=== PATIENT | male | born 1995 | race Caucasian/White ===

== ENCOUNTER 2019-04-29 11:38 | Emergency (ER) | payer OTHER ==
--- NOTE | 2019-04-29 12:11 | ED Physician Documentation ---
PD HPI HEENT - Stated complaint Stated Complaint: BLOCKED EARS - Chief complaint Chief Complaint: Heent - History obtained from History obtained from: Patient - History of Present Illness Timing - onset: How many days ago (4-5) Timing - duration: Days (4-5 days of congestion and some sinus pressure, then with ear pains developing. Feeling more painful and poor hearing from both now.) Timing - details: Gradual onset, Still present Location: Right ear, Left ear, Nose. No: Throat Worsens: Swalllowing Associated symptoms: Congestion. No: Fever, Facial swelling Similar symptoms before: Has not had sx before Recently seen: Clinic (seen 3 days ago at [facility] and told to use guiafenacin and Ibuprofen.) Review of Systems Constitutional: reports: Myalgias. denies: Fever, Chills Ears: reports: Loss of hearing, Ear pain. denies: Drainage/discharge, Tinnitus/ringing Nose: reports: Congestion, Sinus pressure / pain Throat: denies: Sore throat Respiratory: reports: Cough GI: denies: Nausea, Vomiting, Diarrhea Neurologic: denies: Altered mental status, Headache PD PAST MEDICAL HISTORY - Past Medical History Cardiovascular: None Respiratory: None HEENT: None - Present Medications Home Medications: Ambulatory Orders Medication Instructions Recorded Confirmed Cephalexin [Keflex] 500 mg PO Q6H #28 capsule 04/29/19 Cetirizine [ZyrTEC] 10 mg PO DAILY #15 tablet 04/29/19 Ibuprofen [Motrin] 600 mg PO TID PRN #25 tab 04/29/19 dexAMETHasone [Decadron] 4 mg PO DAILY #5 tablet 04/29/19 - Allergies Allergies/Adverse Reactions: Allergies Allergy/AdvReac Type Severity Reaction Status Date / Time clarithromycin [From Biaxin] Allergy Hives Verified 04/29/19 11:46 PD ED PE NORMAL - Vitals Vital signs reviewed: Yes - General General: Alert and oriented X 3, Well developed/nourished - HEENT HEENT: Moist mucous membranes, Pharynx benign. No: Ears normal (both TMs very red and bulging without perforation. ) - Neck Neck: Supple, no meningeal sign, Other (anterior adenopathy) - Cardiac Cardiac: RRR, No murmur - Respiratory Respiratory: Clear bilaterally - Derm Derm: Normal color, Warm and dry Results - Vitals Vitals: Vital Signs - 24 hr 04/29/19 04/29/19 11:46 13:05 Temperature 37.2 C 36.8 C Heart Rate 70 62 Respiratory 16 16 Rate Blood Pressure 148/94 H 125/72 O2 Saturation 97 98 Oxygen O2 Source Room air PD MEDICAL DECISION MAKING - ED course Complexity details: considered differential (both ears TMs quite red and bulging.), d/w patient Departure - Departure Disposition: 01 Home, Self Care Clinical Impression: Upper respiratory infection Qualifiers: URI type: unspecified URI Qualified Code(s): J06.9 - Acute upper respiratory infection, unspecified Otitis media Qualifiers: Otitis media type: suppurative Chronicity: acute Laterality: bilateral Recurrence: non-recurrent Spontaneous tympanic membrane rupture: without spontaneous rupture Qualified Code(s): H66.003 - Acute suppurative otitis media without spontaneous rupture of ear drum, bilateral Condition: Stable Record reviewed to determine appropriate education?: Yes Instructions: ED Otitis Media Acute Adult Follow-Up: DARIO BREAUX III, MD [Primary Care Provider] - Prescriptions: Cephalexin [Keflex] 500 mg PO Q6H #28 capsule Cetirizine [ZyrTEC] 10 mg PO DAILY #15 tablet dexAMETHasone [Decadron] 4 mg PO DAILY #5 tablet Ibuprofen [Motrin] 600 mg PO TID PRN #25 tab PRN Reason: Pain Comments: You can continue the saline spray for the nostrils to cleanse him out. Use cephalexin antibiotic as directed for potential bacterial infection. Decadron steroid daily for 5 more days for inflammation and cetirizine antihistamine for a week or 2 for congestion. Ibuprofen 3 times a day as needed for pains and add Tylenol if needed. I would anticipate improvement over the next 2 to 3 days and resolution within 5 or 6 days. Discharge Date/Time: 04/29/19 13:26
[2019-04-29] MEDS ORDERED: IBUPROFEN 600 MG TABLET PO STA (12:48)
[2019-04-29] MEDS ORDERED: CHERRY SYRUP 10 ML UDC PO ONE (12:48)
[2019-04-29] MEDS ORDERED: diphenhydrAMINE 25 MG CAPSULE PO STA (12:48)
[2019-04-29] MEDS ORDERED: cephALEXin 250 MG CAPSULE PO STA (12:48)
[2019-04-29] MEDS ORDERED: DEXAMETHASONE 10 MG/ML VIAL PO STA (12:48)
[2019-04-29 13:14] VITALS: BP 125/72
== END 2019-04-29 13:26 | disposition home or self-care (01) ==
LOC: ED 11:38
DX: J06.9 Acute upper respiratory infection, unspecified (principal); H66.003 Acute suppurative otitis media without spontaneous rupture of ear drum, bilateral
CPT/HCPCS: 99284; A9270

== ENCOUNTER 2019-12-19 06:01 | Day surgery (SDC) | payer OTHER ==
[2019-12-19] MEDS ORDERED: LACTATED RINGERS 1,000 ML IV ONE ×2 (06:31→08:58)
[2019-12-19] MEDS ORDERED: CEFAZOLIN SODIUM IN 0.9 % NACL 2 GM/100 ML BAG IV ONE (06:41)
[2019-12-19] MEDS ORDERED: MORPHINE 2 MG/ML CARPUJECT IVP PRN (07:10)
[2019-12-19] MEDS ORDERED: HYDROmorphone 0.5 MG/0.5 ML SYRINGE IVP PRN (07:10)
[2019-12-19] MEDS ORDERED: NALOXONE 0.4 MG/ML VIAL IVP PRN (07:10)
[2019-12-19] MEDS ORDERED: fentaNYL 100 MCG/2 ML VIAL IVP PRN (07:10)
[2019-12-19] MEDS ORDERED: ATROPINE ABBOJECT 1 MG/10 ML SYRINGE IVP PRN (07:10)
[2019-12-19] MEDS ORDERED: ePHEDrine 50 MG/ML VIAL IVP PRN (07:10)
[2019-12-19] MEDS ORDERED: ONDANSETRON 4 MG/2 ML VIAL IVP PRN ×2 (07:10→08:54)
[2019-12-19] MEDS ORDERED: METOCLOPRAMIDE 10 MG/2 ML VIAL IVP PRN (07:10)
--- NOTE | 2019-12-19 07:10 | ANESTHESIA ---
Pre-Anesthesia VS, & Labs - Diagnosis right knee chondromalacia - Procedure right knee arthroscopy, chondroplasty Vital Signs: Temp Pulse Resp BP Pulse Ox 36.5 C 70 16 136/76 H 98 12/19/19 06:37 12/19/19 06:37 12/19/19 06:37 12/19/19 06:37 12/19/19 06:37 Height: 5 ft 9 in Weight (kg): 113.4 kg Body Mass Index: 36.9 BMI Classification: Obese - NPO >8 hours Home Medications and Allergies Allergies/Adverse Reactions: Allergies Allergy/AdvReac Type Severity Reaction Status Date / Time clarithromycin [From Biaxin] Allergy Hives Verified 12/15/19 15:13 Anes History & Medical History - Anesthetic History Anesthesia Complications: reports: No previous complications Family history of Anesthesia Complications: Denies Family history of Malignant Hyperthermia: Denies - Medical History Cardiovascular: reports: None Pulmonary: reports: None Gastrointestinal: reports: None Urinary: reports: None Musculoskeletal: reports: Other Endocrine/Autoimmune: reports: None Skin: reports: None Smoking Status: Never smoker - Surgical History Eyes Ears Nose Throat (EENT): Tonsil/Adenoidectomy Orthopedic: Arthroscopic surgery Exam General: Alert, Oriented x3, Cooperative, No acute distress Dental: WNL Mouth Openin Fingerbreadth Neck Mobility: Normal Mallampati classification: I Respiratory: Lungs clear, Normal breath sounds, No respiratory distress Cardiovascular: Regular rate, Normal S1, Normal S2, No murmurs Plan Anesthesia Type: General Consent for Procedure(s) Verified and Reviewed: Yes Code Status: Attempt Resuscitation ASA classification: 2-Mild systemic disease Is this case an emergency?: No
[2019-12-19] MEDS ORDERED: BUPIVACAINE 0.25% PF 30 ML VIAL ONE (07:13)
[2019-12-19] MEDS ORDERED: EPINEPHrine 1 MG/ML AMP ONE (07:13)
[2019-12-19] MEDS ORDERED: LACTATED RINGERS 1,000 ML IV SCH (08:00)
[2019-12-19] MEDS ORDERED: BUPIVACAINE 0.25% PF 30 ML VIAL SUBQ ONE ×2 (08:09)
[2019-12-19] MEDS: HYDROmorphone 1 MG/ML CARPUJECT ONE ×2 (08:48→09:00)
[2019-12-19] MEDS ORDERED: oxyCODONE 5 MG TABLET PO PRN (08:54)
--- NOTE | 2019-12-19 09:06 | OPERATIVE REPORT ---
Operative Report - Other Other Information/Narrative: Date of Surgery: 19 December 2019 Pre-Op Diagnosis: Right knee cartilage injury Procedure: Right knee arthroscopy with patellar chondroplasty, lateral tibial plateau chondroplasty, lateral meniscus debridement Postop Diagnosis: Right knee cartilage injury. Right knee lateral meniscus tear. Primary Surgeon: Torsten Ca Secondary Surgeon: None Complications: None Tourniquet Time: 28 minutes EBL: 5 cc Indication For Surgery: 4-year-old male whom has had patellar pain for 5 to 10 years with insidious onset. MRI and exam was consistent with cartilage injury of the patellofemoral joint and the lateral hemijoint. The goals of surgery were to stabilize the edges of the cartilage lesions and to potentially stage for a second grafting procedure. The risks, benefits, and alternatives were discussed. Risks include pain, bleeding, infection, damage to nearby structures and cartilage, lack of symptom relief, need for further surgery, DVT, PE, stroke, and . Written consent was obtained. Examination Under Anesthesia: ROM equal to the contralateral side. Stable dial at 30 & 90 degrees. Stable to varus and valgus stressing at 0 & 30 degrees. Stable Shawn. Stable Pivot shift. No mechanical sensation Arthroscopic Findings: Loose bodies -soft, small cartilage space loose bodies were seen throughout the knee and they were removed Synovium -injected and synovitic throughout the knee, with some frondular synovitis adjacent to the patella which was debrided Patella cartilage -a large near full-thickness lesion of the lateral patellar facet was present taking up nearly the entire facet and measuring 15 mm x 15 mm, there were no sharp borders. The medial patella also had some partial thickness damage. There was at least partial thickness softening and cartilage wear on the majority of the patella. Trochlear cartilage -the lateral trochlea had grade 2/3 changes throughout. The central trochlea had some linear tracking. The medial trochlea was intact. Notch osteophytes were present along the border of the trochlea as well. There were osteophytes present on the lateral and medial trochlea. multiple full- thickness lesions were seen in the lateral trochlea and measured 5 mm x 5 mm Medial femoral condyle cartilage -largely normal Medial tibial plateau cartilage -normal Medial meniscus -normal Anterior cruciate ligament -normal Posterior cruciate ligament -normal Lateral femoral condyle cartilage -5 mm x 5 mm full-thickness lesion was seen when in full flexion, and another similar lesion was seen when a nearly full extension, these were debrided with a shaver. The majority of the weightbearing surface was intact Lateral tibial plateau cartilage -there was large grade 2/3 changes throughout all portions of the lateral plateau that were not covered by meniscus. There is a 5 mm x 10 mm section in the posterior part of the plateau that had full- thickness cartilage lesion with eburnation of the bone. The edge of the cartilage was debrided until it was stable. Lateral meniscus -degenerative changes seen within the posterior horn along the underside with a small unstable flap, this was debrided back to a stable base. The majority of the lateral meniscus was intact. Procedure in Detail: The patient was met in the pre-operative hold area on the day of the procedure. The operative extremity was signed and questions were answered. The patient was brought to the operating room and a general anesthetic was administered. Supine position was used and bony prominences were padded. An examination under anesthesia was performed. Standard prepping and draping was performed. A time out confirmed patient identification, laterality, procedure, allergies, antibiotics, and images. An Esmarch was used to exsanguinate the limb and the tourniquet was elevated to 250 mmHg. A standard diagnostic arthroscopy of the knee was performed through anterolateral and anteromedial portal sites. The anteromedial portal was created under direct visualization after localizing with a spinal needle. The findings can be found above. I then proceeded to use a shaver and a biter to debride all unstable portions of cartilage, which were quite extensive. I worked on the underside of the patella and on the lateral trochlea. I also debrided unstable synovitis about the patella and some synovitis of the anterior knee. Final images were taken and all arthroscopic fluid and instruments were removed from the knee. The incisions were closed with buried monocryl sutures. Steri strips were applied. 10 cc of 0.25% Marcaine without epinephrine was injected near the portal sites. A sterile dressing and compression stocking was placed. The patient was awakened and transferred to recovery in stable condition.
--- NOTE | 2019-12-19 09:30 | ANESTHESIA POST OP EVALUATION ---
Anesthesia Post Eval - Post Anesthesia Eval Vitals: Last Vital Signs Temp 36.6 C 12/19/19 09:22 Pulse 69 12/19/19 09:22 Resp 16 12/19/19 09:22 BP 132/70 H 12/19/19 09:22 Pulse Ox 98 12/19/19 09:22 CV Function Including HR & BP: positive: Stable Pain Control: positive: Satisfactory Nausea & Vomiting: positive: Negative Mental Status: positive: Baseline Respiratory Status: Airway Patent Hydration Status: Satisfactory Anesthesia Complications: positive: None
[2019-12-19] MEDS ORDERED: oxyCODONE 5 MG TABLET ONE (09:45)
[2019-12-19 10:04] VITALS: BP 135/73
== END 2019-12-19 06:02 | disposition home or self-care (01) ==
LOC: SDS 06:01
PROVIDERS: ATTEND Orthopaedic Surgery
DX: M23.92 Unspecified internal derangement of left knee (principal); S83.281A Other tear of lateral meniscus, current injury, right knee, initial encounter

== ENCOUNTER 2020-09-10 18:59 | Outpatient (CLI) | payer OTHER | END 2020-09-10 19:00 | disposition short-term general hospital (02) | LOC: EMS 18:59 | DX: S89.91XA Unspecified injury of right lower leg, initial encounter (principal); X58.XXXA Exposure to other specified factors, initial encounter; Y93.64 Activity, baseball | CPT/HCPCS: A0425; A0427 ==

== ENCOUNTER 2020-10-06 22:43 | Outpatient (CLI) | payer OTHER | END 2020-10-06 22:44 | disposition short-term general hospital (02) | LOC: EMS 22:43 | DX: R55 Syncope and collapse (principal) | CPT/HCPCS: A0425; A0427 ==

== ENCOUNTER 2021-01-29 08:58 | Outpatient (CLI) | payer OTHER ==
[2021-01-29] MEDS ORDERED: GADOBUTROL 15 MMOL/15 ML VIAL ONE (09:09)
--- NOTE | 2021-01-29 11:59 | MRI Report ---
PROCEDURE: Lower Leg (Tib-Fib) RT W/WO INDICATIONS: PAIN IN RIGHT LEG/ INFECTION RECENT SURG TECHNIQUE: Noncontrast coronal and sagittal T1 spin echo and STIR; axial T1 spin echo and T2 fast spin echo with fat saturation through the tib-fib. Postcontrast coronal T1. CONTRAST: 12 mL Gadavist. COMPARISON: None. FINDINGS: Image quality: Significant susceptibility artifact from the patient's internal fixation hardware. Bones: Intramedullary T2 hyperintense/T1 hypointense signal is seen in the mid to distal tibia, just distal to the hardware. The visualized bone marrow demonstrates normal signal on all sequences. The overlying cortex appears intact. No fractures lines are appreciated. Soft tissues: The scanned muscles demonstrate normal overall bulk and internal signal. Predominantly anterior, reticulated T2 hyperintense/T1 hypointense signal in the subcutaneous fat, compatible with edema. A bilobed T2 hyperintense lesion is seen anterior to the proximal tibia, measuring 6.1 x 0.7 x 3.3 cm (i.e. series 1001, image 16), which may reflect a hematoma. IMPRESSION: 1. Abnormal signal in the mid to distal tibial diaphysis as detailed above, which may reflect bone in farction. An infectious process cannot be excluded. 2. Bilobed fluid collection anterior to the proximal tibia as detailed above, which may reflect a hem atoma. An abscess cannot be excluded. Reviewed by: Anurag Johnson MD on 01/29/2021 11:58 AM [facility] Approved by: Anurag Johnson MD on 01/29/2021 11:58 AM [facility] Station ID: [id number]
[2021-01-29] MEDS ORDERED: GADOBUTROL 15 MMOL/15 ML VIAL IVP ONE (15:35)
== END 2021-01-29 08:59 | disposition home or self-care (01) ==
LOC: DI 08:58
PROVIDERS: ATTEND Family Medicine
DX: R93.6 Abnormal findings on diagnostic imaging of limbs (principal); R93.89 Abnormal findings on diagnostic imaging of other specified body structures
CPT/HCPCS: 73720; A9585

== ENCOUNTER 2021-03-04 14:51 | Emergency (ER) | payer OTHER ==
[2021-03-04] MEDS ORDERED: ALBUTEROL 1 PUFF INH STA (17:04)
--- NOTE | 2021-03-04 17:04 | XRAY Report ---
PROCEDURE: Chest 1 View X-Ray INDICATIONS: chest pain TECHNIQUE: One view of the chest was acquired. COMPARISON: None FINDINGS: Surgical changes and devices: None. Lungs and pleura: No pleural effusions or pneumothorax. Lungs are clear. Mediastinum: Mediastinal contours appear normal. Heart size is normal. Bones and chest wall: No suspicious bony lesions. Overlying soft tissues appear unremarkable. IMPRESSION: No acute cardiopulmonary pathology. Reviewed by: Diego Bernardo MD on 03/04/2021 5:03 PM [facility] Approved by: Diego Bernardo MD on 03/04/2021 5:03 PM [facility] Station ID: [id number]
--- NOTE | 2021-03-04 17:06 | ED Physician Documentation ---
History of Present Illness - Stated complaint Stated Complaint: COUGH, IN CAR [phone] - Chief complaint Chief Complaint: Resp - Additonal information Additional information: 25-year-old male who denies any pertinent past medical history and is fully vaccinated for COVID-19 presents the emergency department with 3 to 4 days of cough, congestion and sore throat and wheeze. He denies any tobacco or vape use. He was exposed to a family member who is COVID-19 positive on Canid. His biggest concern is his painful swallow. Previous history of tonsillectomy. Review of Systems Constitutional: reports: Fever. denies: Chills, Myalgias Eyes: reports: Reviewed and negative Ears: reports: Reviewed and negative Nose: reports: Congestion Throat: reports: Sore throat Cardiac: denies: Palpitations Respiratory: reports: Dyspnea, Cough, Wheezing GI: reports: Reviewed and negative : reports: Reviewed and negative PD PAST MEDICAL HISTORY - Past Medical History Cardiovascular: None Respiratory: None Endocrine/Autoimmune: None GI: None : None HEENT: None Psych: None Musculoskeletal: Other Derm: None - Past Surgical History Past Surgical History: Yes Ortho: Arthroscopic surgery HEENT: Tonsil/Adenoidectomy - Present Medications Home Medications: Ambulatory Orders Medication Instructions Recorded Confirmed Ibuprofen [Motrin] 600 mg PO TID PRN #25 tab 04/29/19 12/19/19 Albuterol Sulf [Ventolin Hfa 1 - 2 puffs INH Q4HR PRN #1 inhaler 03/04/21 Inhaler] - Allergies Allergies/Adverse Reactions: Allergies Allergy/AdvReac Type Severity Reaction Status Date / Time clarithromycin [From Biaxin] Allergy Hives Verified 12/15/19 15:13 - Social History Does the pt smoke?: No Smoking Status: Never smoker Does the pt drink ETOH?: Yes Does the pt have substance abuse?: No - Immunizations Immunizations: TDAP >10years/unknown PD ED PE NORMAL - General General: Alert and oriented X 3, No acute distress, Well developed/nourished - HEENT HEENT: Atraumatic, Moist mucous membranes, Other (Tonsils appear surgically absent. Generalized posterior oropharynx erythema without exudate. Uvula is midline. Normal swallow. Mild dysphonia.) - Neck Neck: Supple, no meningeal sign, No adenopathy - Cardiac Cardiac: RRR, No murmur - Respiratory Respiratory: No respiratory distress. 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 Eye Opening: Spontaneous Motor: Obeys Commands Verbal: Oriented GCS Score: 15 Results - Vitals Vitals: Vital Signs - 24 hr 03/04/21 03/04/21 16:34 17:56 Temperature 37.1 C Heart Rate 88 100 Respiratory 24 18 Rate Blood Pressure 112/57 L O2 Saturation 100 Oxygen O2 Source Room air - Labs Labs: Laboratory Tests 03/04/21 16:44 Group A Strep Rapid Negative - Rads (name of study) CXR Radiology: Final report received (no acute cardiopulmonary pathology) PD MEDICAL DECISION MAKING - ED course Complexity details: reviewed results, re-evaluated patient, considered differential, d/w patient ED course: This is a well-appearing 25-year-old male who presents the emergency department for evaluation of a sore throat cough congestion in the setting of recent Covid 19 exposure. Patient is however fully vaccinated. Rapid strep is negative. A Covid is pending. He did present without hypoxia but had some diffuse scattered expiratory wheeze. Patient was given albuterol here in the emergency department With marked improvement in symptoms. CXR negative. Therefore he will be discharged and albuterol puffer on discharge. He is advised to remain in quarantine until the results are known of his Covid swab. He otherwise appears very well. Emergent return precautions were discussed. Departure - Departure Disposition: Home, Self Care Clinical Impression: Viral upper respiratory infection, Sore throat (viral) Condition: Stable Record reviewed to determine appropriate education?: Yes Instructions: ED Pharyngitis Viral Prescriptions: Albuterol Sulf [Ventolin Hfa Inhaler] 1 - 2 puffs INH Q4HR PRN #1 inhaler PRN Reason: Shortness Of Air/Wheezing Comments: Michele you were seen in the emergency department today for a sore throat cough and congestion. Your chest x-ray is normal. There is no pneumonia. Your rapid strep testing is negative. We do have a Covid test pending on you. I suspect that the cause of your symptoms is a virus. You are to remain in quarantine until your Covid results are known. I recommend that you gargle with warm salt water 3 times a day, take ibuprofen or Tylenol [id number] for discomfort. I have prescribed an albuterol inhaler to the right aid in [place] You have a Covid test pending. You need to self quarantine until the result is done and negative. Do not leave your house. Do not get near anybody. The results should be done in 48 to 72 hours. We will call with a positive result, the fastest way to get a negative result for confirmation though is to go to the hospital website at [email or web address], click on the my [facility] tab and sign up for the patient portal. If any friends or family get sick and would like to have a Covid test done, but do not have signs or symptoms that would necessitate being hospitalized, there are multiple local options for Covid testing. [facility] keeps an updated list of testing and vaccination options at [email or web address]
[2021-03-04 17:14] LABS: RAPID STREP SCREEN Negative (Negative)
[2021-03-04 18:27] VITALS: BP 121/71
== END 2021-03-04 18:27 | disposition home or self-care (01) ==
LOC: ED 14:51
DX: J06.9 Acute upper respiratory infection, unspecified (principal); Z20.822 Contact with and (suspected) exposure to COVID-19
CPT/HCPCS: 87070; 87430; 94640; 94664; 99283; 99284

== ENCOUNTER 2021-06-02 08:00 | Outpatient (CLI) | payer OTHER ==
[2021-06-02 17:35] LABS: BASOPHILS # (AUTO) 0.1 10^3/uL (0.0-0.1); BASOPHILS % (AUTO) 1.1 %; EOSINOPHILS # (AUTO) 0.1 10^3/uL (0.0-0.7); EOSINOPHILS % (AUTO) 1.9 %; HCT - HEMATOCRIT 42.6 % (42.0-52.0); HGB - HEMOGLOBIN 14.1 g/dL (14.0-18.0); LYMPHOCYTES # (AUTO) 2.2 10^3/uL (1.5-3.5); MEAN CORPUSCULAR HGB CONC 33.1 g/dL (32.0-36.0); MEAN CORPUSCULAR VOLUME 84.5 fL (80.0-94.0); MEAN PLATELET VOLUME 10.8 fL (7.4-11.4); MONOCYTES # (AUTO) 0.7 10^3/uL (0.0-1.0); MONOCYTES % (AUTO) 8.8 %; NEUTROPHILS # (AUTO) 4.3 10^3/uL (1.5-6.6); NEUTROPHILS % (AUTO) 57.8 %; PLT - PLATELET COUNT 352 10^3/uL (130-450); RED BLOOD COUNT 5.04 10^6/uL (4.70-6.10); RED CELL DISTRIBUTION WIDTH 13.2 % (12.0-15.0); WHITE BLOOD COUNT 7.5 x10^3/uL (4.8-10.8)
[2021-06-02 18:00] LABS: ALBUMIN 4.1 g/dL (3.2-5.5); ALBUMIN/GLOBULIN RATIO 1.4 (1.0-2.2); BILIRUBIN,TOTAL 0.9 mg/dL (0.2-1.0); CALCIUM 9.4 mg/dL (8.5-10.3); CREATININE 0.8 mg/dL (0.6-1.2); POTASSIUM 4.1 mmol/L (3.5-5.0)
== END 2021-06-02 23:59 | disposition home or self-care (01) ==
LOC: LAB.R 08:00
PROVIDERS: ATTEND Internal Medicine Infectious Disease
DX: M86.261 Subacute osteomyelitis, right tibia and fibula (principal); M86.161 Other acute osteomyelitis, right tibia and fibula
CPT/HCPCS: 80053; 85025

== ENCOUNTER 2021-06-09 08:00 | Outpatient (CLI) | payer OTHER ==
[2021-06-09 17:46] LABS: BASOPHILS # (AUTO) 0.1 10^3/uL (0.0-0.1); BASOPHILS % (AUTO) 1.4 %; EOSINOPHILS # (AUTO) 0.1 10^3/uL (0.0-0.7); EOSINOPHILS % (AUTO) 2.3 %; HCT - HEMATOCRIT 43.7 % (42.0-52.0); HGB - HEMOGLOBIN 14.1 g/dL (14.0-18.0); LYMPHOCYTES # (AUTO) 1.8 10^3/uL (1.5-3.5); LYMPHOCYTES % (AUTO) 34.8 %; MEAN CORPUSCULAR HGB CONC 32.3 g/dL (32.0-36.0); MEAN CORPUSCULAR VOLUME 86.7 fL (80.0-94.0); MEAN PLATELET VOLUME 12.1 fL (7.4-11.4); MONOCYTES # (AUTO) 0.6 10^3/uL (0.0-1.0); MONOCYTES % (AUTO) 10.7 %; NEUTROPHILS # (AUTO) 2.6 10^3/uL (1.5-6.6); NEUTROPHILS % (AUTO) 50.6 %; PLT - PLATELET COUNT 320 10^3/uL (130-450); RED BLOOD COUNT 5.04 10^6/uL (4.70-6.10); RED CELL DISTRIBUTION WIDTH 13.2 % (12.0-15.0); WHITE BLOOD COUNT 5.1 x10^3/uL (4.8-10.8)
[2021-06-09 18:06] LABS: ALBUMIN 4.1 g/dL (3.2-5.5); ALBUMIN/GLOBULIN RATIO 1.5 (1.0-2.2); ALKALINE PHOSPHATASE 62 IU/L (42-121); ALT ALANINE AMINOTRANSFERASE < 10 IU/L (10-60); AST ASPARTATE AMINOTRANSFERASE 20 IU/L (10-42); BILIRUBIN,TOTAL 0.5 mg/dL (0.2-1.0); BUN - BLOOD UREA NITROGEN 17 mg/dL (6-20); CALCIUM 9.4 mg/dL (8.5-10.3); CARBON DIOXIDE - CO2 24 mmol/L (21-32); CHLORIDE 104 mmol/L (101-111); CREATININE 0.9 mg/dL (0.6-1.2); GFR - MDRD 103 (>89); GLUCOSE 99 mg/dL (70-100); POTASSIUM 4.1 mmol/L (3.5-5.0); SODIUM 140 mmol/L (135-145); TOTAL PROTEIN 6.9 g/dL (6.7-8.2)
== END 2021-06-09 23:59 | disposition home or self-care (01) ==
LOC: LAB.R 08:00
PROVIDERS: ATTEND Internal Medicine Infectious Disease
DX: M86.261 Subacute osteomyelitis, right tibia and fibula (principal); M86.161 Other acute osteomyelitis, right tibia and fibula
CPT/HCPCS: 80053; 85025

== ENCOUNTER 2021-06-16 16:26 | Outpatient (CLI) | payer OTHER ==
[2021-06-16 16:48] LABS: BASOPHILS # (AUTO) 0.1 10^3/uL (0.0-0.1); BASOPHILS % (AUTO) 1.1 %; EOSINOPHILS # (AUTO) 0.1 10^3/uL (0.0-0.7); EOSINOPHILS % (AUTO) 2.3 %; HCT - HEMATOCRIT 45.2 % (42.0-52.0); HGB - HEMOGLOBIN 15.1 g/dL (14.0-18.0); LYMPHOCYTES % (AUTO) 37.1 %; MEAN CORPUSCULAR HEMOGLOBIN 28.3 pg (27.0-31.0); MEAN CORPUSCULAR HGB CONC 33.4 g/dL (32.0-36.0); MEAN CORPUSCULAR VOLUME 84.6 fL (80.0-94.0); MEAN PLATELET VOLUME 11.8 fL (7.4-11.4); MONOCYTES # (AUTO) 0.5 10^3/uL (0.0-1.0); MONOCYTES % (AUTO) 9.3 %; NEUTROPHILS # (AUTO) 2.6 10^3/uL (1.5-6.6); NEUTROPHILS % (AUTO) 49.8 %; PLT - PLATELET COUNT 274 10^3/uL (130-450); RED BLOOD COUNT 5.34 10^6/uL (4.70-6.10); RED CELL DISTRIBUTION WIDTH 12.9 % (12.0-15.0); WHITE BLOOD COUNT 5.3 x10^3/uL (4.8-10.8)
[2021-06-16 17:19] LABS: ALBUMIN 4.2 g/dL (3.2-5.5); ALBUMIN/GLOBULIN RATIO 1.4 (1.0-2.2); ALKALINE PHOSPHATASE 60 IU/L (42-121); ALT ALANINE AMINOTRANSFERASE < 10 IU/L (10-60); AST ASPARTATE AMINOTRANSFERASE 21 IU/L (10-42); BILIRUBIN,TOTAL 1.3 mg/dL (0.2-1.0); BUN - BLOOD UREA NITROGEN 13 mg/dL (6-20); CALCIUM 9.1 mg/dL (8.5-10.3); CARBON DIOXIDE - CO2 24 mmol/L (21-32); CHLORIDE 100 mmol/L (101-111); CREATININE 0.7 mg/dL (0.6-1.2); GFR - MDRD 137 (>89); GLUCOSE 83 mg/dL (70-100); POTASSIUM 4.2 mmol/L (3.5-5.0); SODIUM 134 mmol/L (135-145); TOTAL PROTEIN 7.2 g/dL (6.7-8.2)
== END 2021-06-16 16:27 | disposition home or self-care (01) ==
LOC: LAB.R 16:26
PROVIDERS: ATTEND Internal Medicine Infectious Disease
DX: M86.261 Subacute osteomyelitis, right tibia and fibula (principal); M86.161 Other acute osteomyelitis, right tibia and fibula
CPT/HCPCS: 80053; 85025

== ENCOUNTER 2021-06-23 14:28 | Outpatient (CLI) | payer OTHER ==
[2021-06-23 14:46] LABS: BASOPHILS # (AUTO) 0.1 10^3/uL (0.0-0.1); BASOPHILS % (AUTO) 1.3 %; EOSINOPHILS # (AUTO) 0.1 10^3/uL (0.0-0.7); EOSINOPHILS % (AUTO) 1.9 %; HGB - HEMOGLOBIN 14.4 g/dL (14.0-18.0); LYMPHOCYTES # (AUTO) 1.7 10^3/uL (1.5-3.5); LYMPHOCYTES % (AUTO) 32.8 %; MEAN CORPUSCULAR HEMOGLOBIN 28.3 pg (27.0-31.0); MEAN CORPUSCULAR HGB CONC 32.7 g/dL (32.0-36.0); MEAN CORPUSCULAR VOLUME 86.6 fL (80.0-94.0); MEAN PLATELET VOLUME 12.1 fL (7.4-11.4); MONOCYTES # (AUTO) 0.6 10^3/uL (0.0-1.0); MONOCYTES % (AUTO) 10.6 %; NEUTROPHILS # (AUTO) 2.8 10^3/uL (1.5-6.6); NEUTROPHILS % (AUTO) 52.8 %; PLT - PLATELET COUNT 241 10^3/uL (130-450); RED BLOOD COUNT 5.08 10^6/uL (4.70-6.10); RED CELL DISTRIBUTION WIDTH 13.2 % (12.0-15.0); WHITE BLOOD COUNT 5.3 x10^3/uL (4.8-10.8)
[2021-06-23 15:00] LABS: ALBUMIN 4.1 g/dL (3.2-5.5); ALBUMIN/GLOBULIN RATIO 1.5 (1.0-2.2); BILIRUBIN,TOTAL 0.7 mg/dL (0.2-1.0); CALCIUM 9.2 mg/dL (8.5-10.3); CREATININE 0.8 mg/dL (0.6-1.2); POTASSIUM 4.4 mmol/L (3.5-5.0); TOTAL PROTEIN 6.8 g/dL (6.7-8.2)
== END 2021-06-23 14:29 | disposition home or self-care (01) ==
LOC: LAB.R 14:28
PROVIDERS: ATTEND Internal Medicine Infectious Disease
DX: M86.261 Subacute osteomyelitis, right tibia and fibula (principal); M86.161 Other acute osteomyelitis, right tibia and fibula
CPT/HCPCS: 80053; 85025